=== PATIENT | female | born 1980 | race Caucasian/White ===

== ENCOUNTER 2019-07-24 07:26 | Outpatient (CLI) | payer BC ==
--- NOTE | 2019-07-24 10:26 | MRI ---
MRI ABDOMEN WITH AND WITHOUT CONTRAST: Date: 07/24/19 HISTORY: Elevated bilirubin. COMPARISON: None. FINDINGS: The exam was limited due to patient inability to tolerate the contrast; therefore, a full postcontras t exam was unable to be performed. The MRCP images are limited due to significant motion. Extending from caudal most aspect of the posterior mediastinum along the left side of the aorta exten ding deep to the diaphragmatic crura is a T2 hyperintense mass with no enhancement suggesting a dupli cation cyst measuring 14 mm transverse x 32 mm AP dimension, with a craniocaudal length of 5.5 cm. Within hepatic segments IVb, near the falciform ligament, is a T2 hyperintense mass with what appears to be peripheral centripetal enhancement, measuring 1.0 cm, likely a hemangioma. Prior cholecystectomy. Extrahepatic and intrahepatic biliary system is mildly distended. Common bile duct measures up to 7.0 mm. MRCP evaluation is limited, although the main pancreatic duct draining the pancreatic body and tail a ppears to extend and drain into the duct of Santorini. There is a thin connection to another duct, wh ich is blind-ending in the pancreatic head. There is a third duct extending from the duct of Santorin i to the duct of Wirsung, which may be draining the pancreatic head and uncinate process. This is not seen well on the MRCP due to extensive motion. The spleen is unremarkable. 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 No adenopathy. No dilated loops of bowel in the abdomen. IMPRESSION: 1. Mildly distended intrahepatic and extrahepatic biliary system as described measuring up to 7.0 mm . 2. Likely a hemangioma in hepatic segment IVb, although limited due to the absent multiple phases of contrast due to patient's inability to tolerate the contrast exam. 3. Complex pancreatic ductal drainage as described, not well seen on the MRCP images due to motion. The main pancreatic duct is not significantly dilated. 4. T2 hyperintense focus along the ventral pancreatic head, but does not appear to connect to the pa ncreatic ductal system measuring up to 7.0 mm. Follow-up pancreatic protocol MRI in 1 year is recomme nded, with steroid premedication prep. 5. Likely hemangioma T10 vertebral body. 6. 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 No significant internal enhancement. POS: CET
== END 2019-07-24 07:27 | disposition home or self-care (01) ==
LOC: BICMRI 07:26
PROVIDERS: ATTEND Internal Medicine
DX: R10.13 Epigastric pain (principal); R17 Unspecified jaundice; K76.89 Other specified diseases of liver
CPT/HCPCS: 74183

== ENCOUNTER 2019-10-10 11:49 | Emergency (ER) | payer BC ==
[2019-10-10 12:22] LABS: #Basophils 0.1 thou/uL (0.0-0.2); #Eosinphils 0.2 thou/uL (0.0-0.7); #Lymphocytes 2.1 thou/uL (1.20-3.40); #Monocytes 0.4 thou/uL (0.11-0.59); #Neutrophils 5.3 thou/uL (1.40-6.50); %Basophils 0.7 % (0.0-1.0); %Eosinophils 2.4 % (0.0-10.0); %Lymphocytes 26.2 % (21.0-51.0); %Monocytes 4.6 % (0.0-10.0); %Neutrophils 66.1 % (42.0-75.0); Hemoglobin 13.3 g/dL (12.0-16.0); Mean Corpuscular HGB CONC 34.4 g/dL (32.0-36.0); Mean Corpuscular Hemoglobin 32.2 pg (27.0-31.0); Mean Corpuscular Volume 93.4 fL (78.0-98.0); Mean Platelet Volume 7.1 fL (7.4-10.4); Platelet Count 291 thou/uL (130-400); RBC Distribution Width 10.7 % (11.5-14.5); Red Blood Cell (RBC) Count 4.13 mill/uL (4.20-5.40); White Blood Cell (WBC) Count 7.9 thou/uL (4.8-10.8)
[2019-10-10 12:44] LABS: ALT (SGPT) 30 U/L (8-55); AST (SGOT) 22 U/L (5-34); Albumin 4.1 g/dL (3.5-5.0); Alkaline Phosphatase 35 U/L (40-110); Anion Gap 10 mmol/L (10-20); BUN (Urea Nitrogen) 7 mg/dL (7.0-18.7); Calc. Creatinine Clearance 0 mL/min (70-130); Calcium 9.4 mg/dL (7.8-10.44); Carbon Dioxide 26 mmol/L (22-29); Chloride 107 mmol/L (98-107); Estimated GFR-MDRD 90; Globulin 2.4 g/dL (2.4-3.5); Glucose 86 mg/dL (70-105); Lipase 29 U/L (8-78); Potassium 4.3 mmol/L (3.5-5.1); Protein, Total 6.5 g/dL (6.0-8.3); Sodium 139 mmol/L (136-145)
[2019-10-10 12:49] LABS: Bilirubin Negative (Negative); Blood, Urine Negative (Negative); Clarity Clear (Clear); Glucose, Urine (Dipstick) Normal (Negative); Leukocyte Negative Leu/uL (Negative); Nitrite Negative (Negative); Protein, Urine (Dipstick) Negative (Neg-Trace); Urobilinogen Normal mg/dL (Less than 2)
[2019-10-10] MEDS ORDERED: Ketorolac Tromethamine 30 MG/ML VIAL ONE (12:51)
[2019-10-10 12:52] LABS: Pregnancy Test - Urine (BHCG) Negative (Negative); Pregu Control Background? CLEAR/WHITE (CLR/WHITE); Pregu Control Bar Appear? YES (CONTROL BAR); Specific Gravity 1.021 (1.002-1.036)
[2019-10-10] MEDS ORDERED: Glycopyrrolate 0.2 MG/ML 5 ML SYRINGE SLOW IVP SCH (13:45)
== END 2019-10-10 14:54 | disposition home or self-care (01) ==
LOC: ERS 11:49
DX: R10.13 Epigastric pain (principal); R10.12 Left upper quadrant pain; F41.9 Anxiety disorder, unspecified; Z79.899 Other long term (current) drug therapy
CPT/HCPCS: 36415; 80053; 81003; 81025; 83690; 85025; 96374; 96375; J1885

== ENCOUNTER 2020-05-17 09:57 | Outpatient (CLI) | payer BC ==
--- NOTE | 2020-05-17 12:27 | CT ---
EXAM: CT of the chest with contrast HISTORY: Duplication cyst. Abnormal chest x-ray COMPARISON: 05/05/2019; MRI abdomen 07/24/2019 TECHNIQUE: Multiple contiguous axial images were obtained in a CT the chest with contrast. Coronal an d sagittal reformats were performed. FINDINGS: HEART: Normal in size without focal cardiac abnormality MEDIASTINUM: No hilar or mediastinal lymphadenopathy. A small amount of soft tissue density in the an terior mediastinum likely represents residual thymus. LUNGS: No focal infiltrates, nodules, or masses. PLEURAL SPACE: No pneumothorax or pleural effusion. CHEST WALL SOFT TISSUES: Unremarkable OSSEOUS STRUCTURES: No acute abnormality. VISUALIZED SUBDIAPHRAGMATIC STRUCTURES: Status post cholecystectomy with mild biliary dilatation, lik chris a reservoir effect from prior cholecystectomy. There is a stable 1.2 cm low-density structure in the retrocrural space which was seen on prior MRI. IMPRESSION: 1. No evidence of acute intrathoracic abnormality. 2. 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 This is in the retrocrural space and a lymphatic lesion would be favored over a gastric duplication cyst.
== END 2020-05-17 09:58 | disposition home or self-care (01) ==
LOC: SCSCT 09:57
PROVIDERS: ATTEND Internal Medicine
DX: R93.89 Abnormal findings on diagnostic imaging of other specified body structures (principal)
CPT/HCPCS: 71260